=== PATIENT | female | born 1945 | race Hispanic/Latino ===

== ENCOUNTER 2017-07-04 09:33 | Observation (INO) | payer MEDICARE ==
[2017-07-04 09:34] VITALS: BMI 26.2
[2017-07-04] MEDS ORDERED: Sodium Chloride 0.9% 1,000 ML IV STA (10:31)
--- NOTE | 2017-07-04 10:32 | ED PDOC ---
HPI: General Adult Time Seen by Provider: 07/04/17 09:45 Chief Complaint (Nursing): Dizziness/Lightheaded Chief Complaint (Provider): Dizziness History Per: Patient History/Exam Limitations: no limitations Onset/Duration Of Symptoms: Days (3) Current Symptoms Are (Timing): Still Present Additional Complaint(s): Pt. with dizziness like room spinning. Went away initially and then came back. Nausea, vomit, nonbloody with it. No headaches, dyspnea, chest pain, numbness , tingles, neck pain. Had surgery to left hip in Nov. Not walking on it, but on lovenox Left leg baseline weak and does not move much movement to it. Past Medical History Reviewed: Nursing Documentation, Vital Signs Vital Signs: Last Vital Signs Temp 98.1 F 07/04/17 09:35 Pulse 67 07/04/17 09:35 Resp 18 07/04/17 09:35 BP 137/80 07/04/17 09:35 Pulse Ox 99 07/04/17 13:03 - Medical History PMH: Anxiety, Fractures, HTN, Hypercholesterolemia - Surgical History Other surgeries: Left hip surgery - Family History Family History: States: Unknown Family Hx - Social History Current smoker - smoking cessation education provided: No Alcohol: None Drugs: Denies - Immunization History Hx Tetanus Toxoid Vaccination: No Hx Influenza Vaccination: No Hx Pneumococcal Vaccination: No - Home Medications Home Medications: Ambulatory Orders Medication Instructions Recorded Naproxen [Naprosyn Tab] 375 mg PO Q12 PRN #20 tab 06/26/16 Tamsulosin [Flomax] 0.4 mg PO DAILY #10 cap 06/26/16 Losartan [Cozaar] 25 mg PO DAILY 04/29/17 Simvastatin [Zocor] 20 mg PO HS 04/29/17 Calcium/Vitamin D [Citracal+D 2 tab PO DAILY tab 05/01/17 315mg/250IU] Docusate [Colace] 100 mg PO BID cap 05/01/17 Famotidine [Pepcid] 20 mg PO BID tab 05/01/17 Alendronate [Fosamax] 70 mg PO QWK tab 05/15/17 Aspirin [Aspirin Chewable] 81 mg PO DAILY chew 05/15/17 Enoxaparin [Lovenox] 40 mg SC DAILY syr 05/15/17 Ferrous Sulfate [Feosol] 325 mg PO BID tab 05/15/17 Folic Acid 1 mg PO DAILY tab 05/15/17 Lactobacillus Acidophilus [Bacid 1 cap PO BID cap 05/15/17 Acidophilus] Meropenem IV 1 gm in NS [Merrem IV 1 gm IVPB Q12 10 Days #20 bag 05/15/17 1 gm Premix] oxyCODONE/Acetaminophen [Percocet 1 tab PO Q4 PRN #20 tab 05/15/17 5/325 mg Tab] - Allergies Allergies/Adverse Reactions: Allergies Allergy/AdvReac Type Severity Reaction Status Date / Time No Known Allergies Allergy Verified 06/26/16 16:57 Review of Systems ROS Statement: Except As Marked, All Systems Reviewed And Found Negative Gastrointestinal: Positive for: Nausea, Vomiting Neurological: Positive for: Dizziness Physical Exam - Reviewed Nursing Documentation Reviewed: Yes Vital Signs Reviewed: Yes - Physical Exam Appears: Positive for: Non-toxic, No Acute Distress Head Exam: Positive for: ATRAUMATIC, NORMAL INSPECTION, NORMOCEPHALIC Skin: Positive for: Normal Color, Warm, DRY Eye Exam: Positive for: EOMI, Normal appearance, PERRL ENT: Positive for: Normal ENT Inspection Neck: Positive for: Normal, Painless ROM, Supple Cardiovascular/Chest: Positive for: Regular Rate, Rhythm Respiratory: Positive for: CNT, Normal Breath Sounds Gastrointestinal/Abdominal: Positive for: Normal Exam, Bowel Sounds, Soft. Negative for: Tenderness Back: Positive for: Normal Inspection. Negative for: L CVA Tenderness, R CVA Tenderness Extremity: Positive for: Tenderness (mild left hip; limited ROM (baseline her pt.); healed surgical scar.) Neurologic/Psych: Positive for: Alert, security associate II-XII, Oriented. Negative for: Motor/Sensory Deficits, Aphasia, Facial Droop - Laboratory Results Result Diagrams: 07/04/17 10:50 07/04/17 10:50 Interpretation Of Abn Labs: no acute - ECG ECG: Positive for: Interpreted By Me, Viewed By Me ECG Rhythm: Positive for: Normal QRS, Sinus Rhythm, Nonspecific Changes O2 Sat by Pulse Oximetry: 99 Pulse Ox Interpretation: Normal - CT Scan/US head Other Rad Studies (CT/US): Read By Radiologist Other Rad Interpretation: no acute - Progress ED Course And Treament: 1308: Pt. still with dizziness. Will need admit for further eval and tx. Spoke with Dr. Mckeon who will admit. Will give valium. 1320: Spoke with ortho office for Dr. Mckeon. They will notify him about pt. being admitted to the hospital. Disposition - Clinical Impression Clinical Impression: Dizziness - Patient ED Disposition Is Patient to be Admitted: Yes Counseled Patient/Family Regarding: Studies Performed, Diagnosis - Disposition Disposition Time: 13:09 Condition: FAIR - Pt Status Changed To: Hospital Disposition Of: Observation - POA Present On Arrival: None
--- NOTE | 2017-07-04 10:36 | CARD ---
APPROVED REPORT EKG Measurement Heart [id number] <Conclusion> Normal sinus rhythm T wave abnormality, consider anterior ischemia Abnormal ECG
[2017-07-04 11:02] LABS: BASO % 0.3 % (0.0-2.0); EOS # 0.1 K/uL (0.0-0.7); EOS % 0.6 % (0.0-4.0); HEMOGLOBIN 12.8 g/dL (12.0-16.0); LYMPH # 0.9 K/uL (1.0-4.3); MEAN CELL VOLUME 87.6 fl (81.0-99.0); MEAN CORPUSCULAR HEMOGLOBIN 28.8 pg (27.0-31.0); MEAN CORPUSCULAR HGB CONC 32.9 g/dL (33.0-37.0); MEAN PLATELET VOLUME 7.7 fl (7.2-11.7); MONO # 0.5 K/uL (0.0-0.8); MONO % 4.1 % (0.0-10.0); NEUT # 9.8 K/uL (1.8-7.0); PLATELET COUNT 288 K/uL (130-400); RBC 4.46 Mil/uL (3.80-5.20); RED CELL DISTRIBUTION WIDTH 15.3 % (11.5-14.5); WHITE BLOOD COUNT 11.2 K/uL (4.8-10.8)
[2017-07-04 11:13] LABS: ALB/GLOB RATIO 0.9 (1.0-2.1); ALBUMIN 3.8 g/dL (3.5-5.0); ALT/SGPT 30 U/L (9-52); AST/SGOT 23 U/L (14-36); BLOOD UREA NITROGEN 20 mg/dl (7-17); CALCIUM 9.6 mg/dL (8.4-10.2); GFR AFRICAN-AMERICAN > 60; GFR NON-AFRICAN AMERICAN > 60
[2017-07-04 11:18] LABS: INR 1.1 (0.9-1.2); PARTIAL THROMBOPLASTIN TIME 24.9 Seconds (25.6-37.1)
--- NOTE | 2017-07-04 12:14 | CT ---
PROCEDURE: CT HEAD WITHOUT CONTRAST. HISTORY: headache COMPARISON: None available. TECHNIQUE: Axial computed tomography images were obtained through the head/brain without intravenous contrast. Radiation dose: Total exam DLP = 946 mGy-cm. This CT exam was performed using one or more of the following dose reduction techniques: Automated exposure control, adjustment of the mA and/or kV according to patient size, and/or use of iterative reconstruction technique. FINDINGS: HEMORRHAGE: No intracranial hemorrhage. BRAIN: No mass effect or edema. No atrophy or chronic microvascular ischemic changes. VENTRICLES: Unremarkable. No hydrocephalus. CALVARIUM: Unremarkable. PARANASAL SINUSES: Unremarkable as visualized. No significant inflammatory changes. MASTOID AIR CELLS: Unremarkable as visualized. No inflammatory changes. OTHER FINDINGS: None. IMPRESSION: Normal CT of the Head.
[2017-07-04 12:48] LABS: ANISOCYTOSIS SLIGHT; EOSINOPHIL 1 % (0-7); LYMPHOCYTE 12 % (20-50); MONOCYTE 3 % (0-10); NEUTROPHIL 84 % (42-75); PLATELET ESTIMATE NORMAL (NORMAL); TOTAL CELLS COUNTED 100
--- NOTE | 2017-07-04 15:56 | US ---
Bilateral lower extremity ultrasound Indication: Rule out DVT Technique: Duplex ultrasound evaluation of the bilateral lower extremities Comparison: None available Findings: Limited study. There is normal flow, compressibility, and augmentation of the bilateral common femoral, femoral, and popliteal veins. The right PTV is not visualized. The left PTV appears patent. Sub cm left inguinal lymph node, nonspecific. Impression: No evidence of deep venous thrombosis involving bilateral lower extremities. The right PTV is not visualized.
[2017-07-05] MEDS ORDERED: ALENDRONATE 70 MG TAB PO SCH (07:15)
[2017-07-05] MEDS ORDERED: Enoxaparin 40 mg Syringe SC SCH (09:00)
[2017-07-05 09:26] LABS: HDL CHOLESTEROL 40 MG/DL (30-70)
[2017-07-05 09:36] LABS: LDL CHOLESTEROL 113 mg/dL (0-129)
[2017-07-05] MEDS: Enoxaparin 40 mg Syringe SC SCH (09:36)
[2017-07-05] MEDS: Lactobacillus Acidophilus 500 MU Cap PO SCH ×2 (09:41→17:12)
--- NOTE | 2017-07-05 10:41 | CARD ---
APPROVED REPORT EXAM: Two-dimensional and M-mode echocardiogram with Doppler and color Doppler. Other Information Quality : AverageRhythm : NSR INDICATION Dizziness and Vertigo 2D DIMENSIONS IVSd0.95 (0.7-1.1cm)LVDd3.67 (3.9-5.9cm) LVOT Diameter2.22 (1.8-2.4cm)PWd0.86 (0.7-1.1cm) IVSs1.18 (0.8-1.2cm)LVDs2.77 (2.5-4.0cm) FS (%) 24.4 %PWs1.33 (0.8-1.2cm) M-Mode DIMENSIONS Left Atrium (MM)4.29 (2.5-4.0cm)IVSd0.74 (0.7-1.1cm) Aortic Root2.91 (2.2-3.7cm)LVDd5.41 (4.0-5.6cm) Aortic Cusp Exc.1.85 (1.5-2.0cm)PWd0.97 (0.7-1.1cm) IVSs1.53 cmFS (%) 50 % LVDs2.71 (2.0-3.8cm)PWs1.18 cm Mitral Valve MV E Hsgsgbls71.7cm/sMV DECEL [id number] A Waqpynwp79.6cm/s MV LMZ09seN/A ratio1.1MVA (PHT)3.81cm2 TDI Lateral E' Peak V9.04cm/sMedial E' Peak V7.82cm/sE/Lateral E'6.2 E/Medial E'7.1 Tricuspid Valve TR Peak Ywketybl711rz/sRAP [id number] Peak Gr.7mmHg [id number] LEFT VENTRICLE The left ventricle is normal size. There is normal left ventricular wall thickness. Left ventricle systolic function is normal. The Ejection Fraction is 65-70%. There is normal LV segmental wall motion. Transmitral Doppler flow pattern is Grade I-abnormal relaxation pattern. RIGHT VENTRICLE The right ventricle is normal size. There is normal right ventricular wall thickness. The right ventricular systolic function is normal. ATRIA The left atrium size is normal. The right atrium size is normal. AORTIC VALVE The aortic valve is normal in structure. No aortic regurgitation is present. There is no aortic valvular stenosis. MITRAL VALVE The mitral valve is normal in structure. There is no evidence of mitral valve prolapse. There is no mitral valve stenosis. There is no mitral valve regurgitation noted. TRICUSPID VALVE The tricuspid valve is normal in structure. There is no tricuspid valve regurgitation noted. PULMONIC VALVE The pulmonary valve is normal in structure. There is no pulmonic valvular regurgitation. GREAT VESSELS The aortic root is normal in size. The IVC is normal in size and collapses >50% with inspiration. PERICARDIAL EFFUSION The pericardium appears normal. <Conclusion> The left ventricle is normal size. There is normal left ventricular wall thickness. There is normal LV segmental wall motion. Left ventricle systolic function is normal. The Ejection Fraction is 65-70%. Transmitral Doppler flow pattern is Grade I-abnormal relaxation pattern.
[2017-07-05] MEDS: metroNIDAZOLE 500mg/100ml NS 50 ML IVPB SCH ×2 (11:07→17:09)
[2017-07-05] MEDS: Citracal+D 315mg/250IU PO SCH (11:08)
--- NOTE | 2017-07-05 13:10 | US ---
PROCEDURE: Duplex ultrasound of the carotid and vertebral arteries. HISTORY: vertigo COMPARISON: None available. TECHNIQUE: Grayscale and duplex Doppler evaluation of the cervical carotid and vertebral arteries were performed. The common carotid, carotid bifurcations and cervical ICA and proximal ECA were evaluated. The vertebral arteries were evaluated for gross patency and direction. FINDINGS: RIGHT CAROTID ARTERIES: Common Carotid Artery: Normal. Maximal flow velocity of 86.2 cm/s. Carotid Bifurcation: Normal. Internal Carotid Artery:Heterogeneous plaque formation. Maximal flow velocity of 101.8 cm/s. External Carotid Artery (proximal branches): Normal. Maximal flow velocity of 76.5 cm/s. ICA/CCA Ratio: 1.9 LEFT CAROTID ARTERIES: Common Carotid Artery: Intimal thickening is present Maximal flow velocity of 94.1 cm/s. Carotid Bifurcation: Normal. Internal Carotid Artery:Heterogeneous plaque formation. Maximal flow velocity of 83.6 cm/s. External Carotid Artery (proximal branches): Normal. Maximal flow velocity of 95.7 cm/s. ICA/CCA Ratio: 1.1 VERTEBRAL ARTERIES: Right Vertebral Artery: Patent. Antegrade flow. Left Vertebral Artery: Patent. Antegrade flow. OTHER FINDINGS: None. IMPRESSION: Right ICA degree of stenosis: Less than 50% Left ICA degree of stenosis: Less than 50% Reference Internal Carotid Artery (ICA) Peak Systolic Velocity (PSV) for above: 1. Less than 50% stenosis less than 125 cm/s peak systolic velocity 2. 50-69% stenosis 125-230cm/s peak systolic velocity 3. Greater than 70% but less than near occlusion greater than 230 cm/s peak systolic velocity
--- NOTE | 2017-07-05 13:22 | CP.PCM.CON ---
History of Present Illness - History of Present Illness History of Present Illness: Mrs. Aguilar is a 71-year-old woman with a past medical history of HTN, HLD, CAD, who presented with complaints of feeling that the room is spinning. It was associated with nausea, vomiting and was made worse when she turned her head to either side. But, she said that it does feel slightly worse when she turns to the left as opposed to the right side. She is feeling better now, but still has the spinning sensation, even when she closes her eyes. Review of Systems - Review of Systems All systems: reviewed and no additional remarkable complaints except Past Patient History - Infectious Disease Hx of Infectious Diseases: None - Past Medical History & Family History Past Medical History?: Yes - Past Social History Smoking Status: Never Smoked - CARDIAC Hx Cardiac Disorders: Yes Hx Hypertension: Yes - PULMONARY Hx Respiratory Disorders: No - NEUROLOGICAL Hx Vertigo: Yes - HEENT Hx HEENT Problems: No - RENAL Hx Chronic Kidney Disease: No - ENDOCRINE/METABOLIC Hx Endocrine Disorders: No - HEMATOLOGICAL/ONCOLOGICAL Hx Blood Disorders: No - INTEGUMENTARY Hx Dermatological Problems: No - MUSCULOSKELETAL/RHEUMATOLOGICAL Hx Musculoskeletal Disorders: Yes Hx Falls: Yes - GASTROINTESTINAL Hx Gastrointestinal Disorders: No - GENITOURINARY/GYNECOLOGICAL Hx Genitourinary Disorders: No - PSYCHIATRIC Hx Psychophysiologic Disorder: Yes Hx Anxiety: Yes Hx Substance Use: No - SURGICAL HISTORY Hx Surgeries: Yes Hx Orthopedic Surgery: Yes (left anterior THR) - ANESTHESIA Hx Anesthesia: Yes Hx Anesthesia Reactions: No Meds Allergies/Adverse Reactions: Allergies Allergy/AdvReac Type Severity Reaction Status Date / Time No Known Allergies Allergy Verified 06/26/16 16:57 - Medications Medications: Current Medications Alendronate Sodium (Fosamax) 70 mg PO QWK [facility] Aspirin (Aspirin Chewable) 81 mg PO DAILY [facility] Last Admin: 07/05/17 09:41 Dose: 81 mg Atorvastatin Calcium (Lipitor) 10 mg PO DAILY [facility] Last Admin: 07/05/17 11:06 Dose: 10 mg Calcium/Vitamin D (Citracal+D 315mg/250iu) 2 tab PO DAILY [facility] Last Admin: 07/05/17 11:08 Dose: 2 tab Diazepam (Valium) 2 mg PO Q12 PRN PRN Reason: Dizziness Docusate Sodium (Colace) 100 mg PO BID [facility] Last Admin: 07/05/17 09:43 Dose: 100 mg Enoxaparin Sodium (Lovenox) 40 mg SC DAILY [facility] PRN Reason: Protocol Last Admin: 07/05/17 09:36 Dose: 40 mg Famotidine (Pepcid) 20 mg PO BID [facility] Last Admin: 07/05/17 09:42 Dose: 20 mg Ferrous Sulfate (Feosol) 325 mg PO BID [facility] Last Admin: 07/05/17 09:41 Dose: 325 mg Folic Acid (Folic Acid) 1 mg PO DAILY [facility] Last Admin: 07/05/17 11:08 Dose: 1 mg Metronidazole (Flagyl 500mg/100ml Ns) 50 mls @ 50 mls/hr IVPB Q8 [facility] PRN Reason: Protocol Last Admin: 07/05/17 11:07 Dose: 50 mls/hr Lactobacillus Acidophilus (Bacid Acidophilus) 1 cap PO BID [facility] Last Admin: 07/05/17 09:41 Dose: 1 cap Losartan Potassium (Cozaar) 25 mg PO DAILY [facility] Last Admin: 07/05/17 11:08 Dose: 25 mg Meclizine HCl (Antivert) 25 mg PO BID [facility] Last Admin: 07/05/17 11:07 Dose: 25 mg Physical Exam - Constitutional Appears: Well - Head Exam Head Exam: ATRAUMATIC - Eye Exam Eye Exam: EOMI, Normal appearance, PERRL - ENT Exam ENT Exam: Mucous Membranes Moist, Normal Exam - Neck Exam Neck exam: Positive for: Normal Inspection - Respiratory Exam Respiratory Exam: Clear to Auscultation Bilateral, NORMAL BREATHING PATTERN - Cardiovascular Exam Cardiovascular Exam: REGULAR RHYTHM, +S1, +S2 - GI/Abdominal Exam GI & Abdominal Exam: Normal Bowel Sounds, Soft. absent: Tenderness - Rectal Exam Rectal Exam: Deferred - Extremities Exam Extremities exam: Positive for: normal inspection - Back Exam Back exam: NORMAL INSPECTION - Neurological Exam Neurological exam: Abnormal Gait, Alert, CN II-XII Intact, Oriented x3, Reflexes Normal Additional comments: Left beating nystagmus. Strength and sensation are normal and symmetrical. Coordination is intact. Romberg is normal. HTS/FTN is normal. Reflexes were normal. Plantar responses are downgoing. Results - Vital Signs Recent Vital Signs: Last Vital Signs Temp 98.4 F 07/05/17 12:23 Pulse 82 07/05/17 12:23 Resp 20 07/05/17 12:23 BP 116/71 07/05/17 12:23 Pulse Ox 95 07/05/17 12:23 - Labs Result Diagrams: 07/04/17 10:50 07/04/17 10:50 Labs: Laboratory Results - last 24 hr 07/04/17 07/05/17 07/05/17 09:28 07:45 08:51 Hemoglobin A1c Triglycerides 132 Cholesterol 198 LDL Cholesterol Direct 113 HDL Cholesterol 40 Vitamin B12 400 TSH 3rd Generation 3.85 07/05/17 08:51 Hemoglobin A1c 5.3 Triglycerides Cholesterol LDL Cholesterol Direct HDL Cholesterol Vitamin B12 TSH 3rd Generation Assessment & Plan (1) Vertigo Assessment and Plan: Is most likely due to benign positional vertigo; however, due to her risk factors, I recommend obtaining further imaging for work-up. I recommend: 1. Telemetry 2. If possible, MRI/MRA of the brain; if not, CTA of the head/neck. 3. Echocardiogram. 4. Continue aspirin and statin 5. Valium 2 mg Q12 for vertigo 6. Vestibular rehab 7. PT/OT eval Thank you. Status: Acute Priority: High
[2017-07-05] MEDS ORDERED: Sodium Chloride 0.9% 50 ML IV ONE (17:29)
[2017-07-05] MEDS ORDERED: Iodixanol 320 MG/ML 100 ML BOTTLE IV ONE (17:29)
[2017-07-05 17:58] LABS: FOLATE > 20.0 ng/mL
--- NOTE | 2017-07-05 18:05 | CP.PCM.HP ---
History of Present Illness - History of Present Illness History of Present Illness: Pt. presented in ER with persisted dizziness like room spinning for several days with no improvement. No Nausea, vomit No headaches, dyspnea, chest pain, numbness, tingles, neck pain. Had surgery to left hip in Nov. Present on Admission - Present on Admission Any Indicators Present on Admission: No Review of Systems - Constitutional Constitutional: Malaise - EENT Eyes: As Per HPI - Cardiovascular Cardiovascular: As Per HPI - Respiratory Respiratory: As Per HPI - Gastrointestinal Gastrointestinal: As Per HPI - Musculoskeletal Musculoskeletal: As Per HPI - Neurological Neurological: Abnormal Gait, Vertigo - Psychiatric Psychiatric: As Per HPI Past Patient History - Infectious Disease Hx of Infectious Diseases: None - Past Medical History & Family History Past Medical History?: Yes - Past Social History Smoking Status: Never Smoked - CARDIAC Hx Cardiac Disorders: Yes Hx Hypertension: Yes - PULMONARY Hx Respiratory Disorders: No - NEUROLOGICAL Hx Vertigo: Yes - HEENT Hx HEENT Problems: No - RENAL Hx Chronic Kidney Disease: No - ENDOCRINE/METABOLIC Hx Endocrine Disorders: No - HEMATOLOGICAL/ONCOLOGICAL Hx Blood Disorders: No - INTEGUMENTARY Hx Dermatological Problems: No - MUSCULOSKELETAL/RHEUMATOLOGICAL Hx Musculoskeletal Disorders: Yes Hx Falls: Yes - GASTROINTESTINAL Hx Gastrointestinal Disorders: No - GENITOURINARY/GYNECOLOGICAL Hx Genitourinary Disorders: No - PSYCHIATRIC Hx Psychophysiologic Disorder: Yes Hx Anxiety: Yes Hx Substance Use: No - SURGICAL HISTORY Hx Surgeries: Yes Hx Orthopedic Surgery: Yes (left anterior THR) - ANESTHESIA Hx Anesthesia: Yes Hx Anesthesia Reactions: No Meds Allergies/Adverse Reactions: Allergies Allergy/AdvReac Type Severity Reaction Status Date / Time No Known Allergies Allergy Verified 06/26/16 16:57 Physical Exam - Constitutional Appears: Non-toxic - Head Exam Head Exam: ATRAUMATIC - Eye Exam Eye Exam: Normal appearance - ENT Exam ENT Exam: Mucous Membranes Moist - Neck Exam Neck exam: Positive for: Full Rom - Respiratory Exam Respiratory Exam: Clear to Auscultation Bilateral - Cardiovascular Exam Cardiovascular Exam: REGULAR RHYTHM, +S1, +S2 - GI/Abdominal Exam GI & Abdominal Exam: Normal Bowel Sounds - Extremities Exam Extremities exam: Positive for: normal inspection - Neurological Exam Neurological exam: Alert, CN II-XII Intact, Oriented x3 - Psychiatric Exam Psychiatric exam: Normal Affect - Skin Skin Exam: Normal Color Results - Vital Signs Recent Vital Signs: Last Vital Signs Temp 98.4 F 07/05/17 12:23 Pulse 82 07/05/17 12:23 Resp 20 07/05/17 12:23 BP 116/71 07/05/17 12:23 Pulse Ox 95 07/05/17 12:23 - Labs Result Diagrams: 07/04/17 10:50 07/04/17 10:50 Labs: Laboratory Results - last 24 hr 07/04/17 07/05/17 07/05/17 09:28 07:45 08:51 Hemoglobin A1c Triglycerides 132 Cholesterol 198 LDL Cholesterol Direct 113 HDL Cholesterol 40 Vitamin B12 400 Folate > 20.0 TSH 3rd Generation 3.85 07/05/17 08:51 Hemoglobin A1c 5.3 Triglycerides Cholesterol LDL Cholesterol Direct HDL Cholesterol Vitamin B12 Folate TSH 3rd Generation Assessment & Plan (1) Labyrinthine dysfunction Status: Acute (2) Dizziness Status: Acute (3) Vertigo Status: Acute Priority: High (4) Polio Status: Chronic (5) Neuroma Status: Suspected - Assessment and Plan (Free Text) Plan: As per orders.
[2017-07-06] MEDS: metroNIDAZOLE 500mg/100ml NS 50 ML IVPB SCH ×2 (00:30→10:04)
[2017-07-06 08:33] VITALS: O2SAT 97
[2017-07-06] MEDS: Citracal+D 315mg/250IU PO SCH (10:05)
[2017-07-06] MEDS: Enoxaparin 40 mg Syringe SC SCH (10:06)
[2017-07-06] MEDS: Lactobacillus Acidophilus 500 MU Cap PO SCH ×2 (10:09→17:35)
--- NOTE | 2017-07-06 10:58 | CT ---
PROCEDURE: CT Angiography of the neck and brain dated 07/05/2017 HISTORY: Dizziness. COMPARISON: Correlation made with prior CT scan brain dated 07/04/2017. TECHNIQUE: Contiguous axial images of the neck and brain were obtained from the level of the skull-base to the superior mediastinum in the arteriographic phase of enhancement. Coronal and sagittal reformats or also generated. IV contrast dose: 20 cc Visipaque 320 Radiation Dose - DLP: 2144.7 mGy-cm This CT exam was performed using one or more of the following dose reduction techniques: Automated exposure control, adjustment of the mA and/or kV according to patient size, and/or use of iterative reconstruction technique. . FINDINGS: Minor partially calcified atherosclerotic plaque seen along the left inferolateral margin of the transverse portion of the aortic arch. Origins of the great vessels widely patent without occlusion or significant stenosis. The ascending thoracic aorta measures approximately 3.6 cm and descending thoracic aorta measures approximately 2.3 cm The common carotid arteries are widely patent. Some very minimal atherosclerotic plaque seen along distal right common carotid artery extending into the bifurcation however no evidence of occlusion or significant stenosis. Distal internal carotid arteries including the petrous, cavernous and carotid segments also widely patent. Some very minimal partially calcified plaque seen along the right cavernous carotid segment. The vertebral arteries are patent throughout as is the basilar artery. The visualized intracranial circulation unremarkable. No evidence of large aneurysm nor vascular malformation. Multiple tiny calcifications seen throughout the palatine tonsils consistent with tonsilliths. There is asymmetry of the vallecular left-side of which is smaller than the right containing soft tissue. While this could be secondary to residual/retained secretion, the possibility of a mucosal lesion not excluded. Direct visualization recommended. ENT consultation also suggested. Free margin of the epiglottis is unremarkable. True vocal cords are symmetric. Pyriform sinuses are diminutive but also symmetric. There is a heterogeneous appearance of the thyroid gland likely in part due to crossing streak and beam hardening artifact arising from dense clavicles and shoulder girdles. There appears to be a very tiny low-attenuation focus within the right lobe thyroid gland. Consider followup thyroid ultrasound. Note is made of a rounded approximately 9.75 mm calcification within the right submandibular region possibly representing a calculus within the right submandibular duct. Atelectatic changes seen within the upper lung luciano. No focal consolidation. IMPRESSION: No evidence of occlusion or significant stenosis. There is no evidence of large aneurysm nor vascular malformation. Heterogeneous thyroid gland with questionable small low-attenuation focus right lobe thyroid gland. Recommend followup thyroid ultrasound. In addition, there is a large calcification in the right submandibular region possibly representing a calculus within the right submandibular duct There is asymmetry of the vallecular left-side of which is smaller than the right containing soft tissue. While this could be secondary to residual/retained secretion, the possibility of a mucosal lesion not excluded. Direct visualization recommended. ENT consultation also suggested. Multiple small bilateral palatine tonsilliths.
--- NOTE | 2017-07-06 11:36 | CP.PCM.PN ---
Subjective - Date & Time of Evaluation Date of Evaluation: 07/06/17 Time of Evaluation: 11:33 - Subjective Subjective: Ms. Aguilar was seen and examined at the bedside. She is alert, oriented in all spheres. She claims of dizziness improved in comparison from yesterday. She denies any headache, blurred vision, nausea, or vomiting. She is able to follow simple commands. Echocardiogram showed normal EF, CTA of the head and neck showed no evidence of occlusion or significant stenosis. There is no evidence of aneuryms or vascular malformation.There was no untoward events overnight. Objective - Vital Signs/Intake and Output Vital Signs (last 24 hours): Temp Pulse Resp BP Pulse Ox 98.5 F 67 20 134/83 97 07/06/17 08:00 07/06/17 10:05 07/06/17 08:00 07/06/17 10:05 07/06/17 08:00 - Medications Medications: Current Medications Acetaminophen (Tylenol 325mg Tab) 650 mg PO Q6 PRN PRN Reason: Pain, Mild (1-3) Last Admin: 07/06/17 05:24 Dose: 650 mg Alendronate Sodium (Fosamax) 70 mg PO QWK [facility] Aspirin (Aspirin Chewable) 81 mg PO DAILY [facility] Last Admin: 07/06/17 10:05 Dose: 81 mg Atorvastatin Calcium (Lipitor) 10 mg PO DAILY [facility] Last Admin: 07/06/17 10:06 Dose: 10 mg Calcium/Vitamin D (Citracal+D 315mg/250iu) 2 tab PO DAILY [facility] Last Admin: 07/06/17 10:05 Dose: 2 tab Diazepam (Valium) 2 mg PO Q12 PRN PRN Reason: Dizziness Docusate Sodium (Colace) 100 mg PO BID [facility] Last Admin: 07/06/17 10:09 Dose: 100 mg Enoxaparin Sodium (Lovenox) 40 mg SC DAILY [facility] PRN Reason: Protocol Last Admin: 07/06/17 10:06 Dose: 40 mg Famotidine (Pepcid) 20 mg PO BID [facility] Last Admin: 07/06/17 10:06 Dose: 20 mg Ferrous Sulfate (Feosol) 325 mg PO BID [facility] Last Admin: 07/06/17 10:04 Dose: 325 mg Folic Acid (Folic Acid) 1 mg PO DAILY [facility] Last Admin: 07/06/17 10:06 Dose: 1 mg Metronidazole (Flagyl 500mg/100ml Ns) 50 mls @ 50 mls/hr IVPB Q8 [facility] PRN Reason: Protocol Last Admin: 07/06/17 10:04 Dose: 50 mls/hr Lactobacillus Acidophilus (Bacid Acidophilus) 1 cap PO BID [facility] Last Admin: 07/06/17 10:09 Dose: 1 cap Losartan Potassium (Cozaar) 25 mg PO DAILY [facility] Last Admin: 07/06/17 10:05 Dose: 25 mg - Labs Labs: 07/04/17 10:50 07/04/17 10:50 PT 12.0 Seconds (9.8-13.1) 07/04/17 11:04 INR 1.1 (0.9-1.2) 07/04/17 11:04 APTT 24.9 Seconds (25.6-37.1) L 07/04/17 11:04 - Constitutional Appears: No Acute Distress - Head Exam Head Exam: NORMAL INSPECTION - Neurological Exam Neurological Exam: Alert, Awake Neuro motor strength exam: Left Upper Extremity: 5, Right Upper Extremity: 5, Left Lower Extremity: 5, Right Lower Extremity: 5 Additional comments: She is able to answer questions and follow simple commands. Dizziness is improved since admission. Assessment and Plan (1) Vertigo Assessment & Plan: Case discussed with Dr. Barrett, continue all current medical, physical therapies. There is no new recommendation from neurology. Status: Acute
--- NOTE | 2017-07-06 13:10 | RAD ---
PROCEDURE: Left Hip X-ray radiographs dated 07/06/2017. HISTORY: Status post hip replacement. COMPARISON: Comparison made [facility] radiographs dated 01/24/17 FINDINGS: BONES: There has been interval left total hip replacement. The acetabular component projects medially ; rule out protrusio of the acetabular total hip replacement component. Hardware intact. No definitive fracture. SOFT TISSUES: Normal. OTHER FINDINGS: None. IMPRESSION: There has been interval left total hip replacement. The acetabular component projects medially ; rule out protrusio of the acetabular total hip replacement component. Hardware intact. No definitive fracture.
--- NOTE | 2017-07-06 14:13 | US ---
HISTORY: nodule TECHNIQUE: Sonographic evaluation of the thyroid gland. COMPARISON: 2017. CT neck documenting heterogeneous appearance of the thyroid. FINDINGS: RIGHT LOBE: Measures 1.6 x 1.5 x 4.7 cm. Heterogenous echotexture, normal vascularity Nodules: None LEFT LOBE: Measures 1.3 x 1.3 x 4.7 cm. Heterogenous echotexture, normal vascularity Nodules: None ISTHMUS: Measures 0.36 cm. Normal echotexture and flow. Nodules: None OTHER FINDINGS: None . IMPRESSION: No significant findings. Normal size gland, unremarkable vascularity, heterogeneous echo characteristics.
--- NOTE | 2017-07-06 15:11 | CT ---
PROCEDURE: Left hip dated 07/06/2017. HISTORY: Questionable fracture COMPARISON: Comparison made with plain film radiographs obtained earlier same day TECHNIQUE: Contiguous helical/transaxial images of the left hip were obtained. Coronal and sagittal reformats were generated. This CT exam was performed using one or more of the following dose reduction techniques: Automated exposure control, adjustment of the mA and/or kV according to patient size, and/or use of iterative reconstruction technique. Radiation dose: Total PNE=429.80 FINDINGS: BONES: Left total hip replacement. Hardware intact and appropriately located. . There is slight protrusio of the acetabular component which is felt to be within range of normal. There is no evidence of complete extension of the metallic acetabular component through acetabular roof LEFT HIP JOINT: . Unremarkable. No dislocation. No degenerative changes. SOFT TISSUES: Unremarkable. IMPRESSION: No evidence of acute displaced fracture nor dislocation. . Hardware is intact without an appropriate located without evidence of. Minimal protrusion of the acetabular component which is felt to be within range of normal.
--- NOTE | 2017-07-06 15:14 | CP.PCM.PN ---
Subjective - Date & Time of Evaluation Date of Evaluation: 07/06/17 Time of Evaluation: 15:13 - Subjective Subjective: Patient stable no new c/o. Will dc home. Objective - Vital Signs/Intake and Output Vital Signs (last 24 hours): Temp Pulse Resp BP Pulse Ox 98.2 F 63 18 130/79 97 07/06/17 12:57 07/06/17 12:57 07/06/17 12:57 07/06/17 12:57 07/06/17 12:57 - Medications Medications: Current Medications Acetaminophen (Tylenol 325mg Tab) 650 mg PO Q6 PRN PRN Reason: Pain, Mild (1-3) Last Admin: 07/06/17 05:24 Dose: 650 mg Alendronate Sodium (Fosamax) 70 mg PO QWK [facility] Aspirin (Aspirin Chewable) 81 mg PO DAILY [facility] Last Admin: 07/06/17 10:05 Dose: 81 mg Atorvastatin Calcium (Lipitor) 10 mg PO DAILY [facility] Last Admin: 07/06/17 10:06 Dose: 10 mg Calcium/Vitamin D (Citracal+D 315mg/250iu) 2 tab PO DAILY [facility] Last Admin: 07/06/17 10:05 Dose: 2 tab Diazepam (Valium) 2 mg PO Q12 PRN PRN Reason: Dizziness Docusate Sodium (Colace) 100 mg PO BID [facility] Last Admin: 07/06/17 10:09 Dose: 100 mg Enoxaparin Sodium (Lovenox) 40 mg SC DAILY [facility] PRN Reason: Protocol Last Admin: 07/06/17 10:06 Dose: 40 mg Famotidine (Pepcid) 20 mg PO BID [facility] Last Admin: 07/06/17 10:06 Dose: 20 mg Ferrous Sulfate (Feosol) 325 mg PO BID [facility] Last Admin: 07/06/17 10:04 Dose: 325 mg Folic Acid (Folic Acid) 1 mg PO DAILY [facility] Last Admin: 07/06/17 10:06 Dose: 1 mg Metronidazole (Flagyl 500mg/100ml Ns) 50 mls @ 50 mls/hr IVPB Q8 [facility] PRN Reason: Protocol Lactobacillus Acidophilus (Bacid Acidophilus) 1 cap PO BID [facility] Last Admin: 07/06/17 10:09 Dose: 1 cap Losartan Potassium (Cozaar) 25 mg PO DAILY [facility] Last Admin: 07/06/17 10:05 Dose: 25 mg - Labs Labs: 07/04/17 10:50 07/04/17 10:50 PT 12.0 Seconds (9.8-13.1) 07/04/17 11:04 INR 1.1 (0.9-1.2) 07/04/17 11:04 APTT 24.9 Seconds (25.6-37.1) L 07/04/17 11:04 - Constitutional Appears: Non-toxic - Head Exam Head Exam: ATRAUMATIC, NORMAL INSPECTION, NORMOCEPHALIC - Eye Exam Eye Exam: Normal appearance - ENT Exam ENT Exam: Mucous Membranes Moist - Neck Exam Neck Exam: Full ROM - Respiratory Exam Respiratory Exam: Clear to Ausculation Bilateral - Cardiovascular Exam Cardiovascular Exam: REGULAR RHYTHM, +S1, +S2 - GI/Abdominal Exam GI & Abdominal Exam: Soft, Normal Bowel Sounds - Extremities Exam Extremities Exam: Normal Inspection - Neurological Exam Neurological Exam: Alert, Awake, CN II-XII Intact - Psychiatric Exam Psychiatric exam: Normal Affect - Skin Skin Exam: Normal Color Assessment and Plan (1) Labyrinthine dysfunction Status: Chronic (2) Dizziness Status: Resolved (3) Vertigo Status: Resolved (4) Polio Status: Ruled-out (5) Neuroma Status: Suspected - Assessment and Plan (Free Text) Plan: DC home
[2017-07-06 15:54] VITALS: BP 136/83; PULSE 88; RESP 20; TEMP 98
[2017-07-06] MEDS ORDERED: metroNIDAZOLE 500mg/100ml NS 50 ML IVPB SCH (17:00)
== END 2017-07-06 23:14 | disposition home or self-care (01) ==
LOC: H.ER 09:33 → H.ERHOLD 13:14 → H.TEL 21:38
PROVIDERS: ADMIT Internal Medicine; ATTEND Internal Medicine
DX: H81.10 Benign paroxysmal vertigo, unspecified ear (principal); I10 Essential (primary) hypertension; E78.5 Hyperlipidemia, unspecified; I25.10 Atherosclerotic heart disease of native coronary artery without angina pectoris
CPT/HCPCS: 36415; 70450; 70496; 70498; 73502; 73700; 76536; 80053; 80061; 82607; 82746; 83036; 84443; 84484; 85025; 85610; 85730; 93005; 93306; 93880; 93970; 97162; 99285; G0378; G8981; G8982; J1650; J2405; J7040; Q9967

== ENCOUNTER 2018-07-09 09:25 | Day surgery (SDC) | payer MEDICARE ==
[2018-07-09] MEDS ORDERED: Phenylephrine 2.5% Opht Soln OS ONE (10:15)
[2018-07-09] MEDS ORDERED: Flurbiprofen 0.03% Opht SOLN OS ONE ×2 (10:15→10:34)
[2018-07-09] MEDS ORDERED: Tropicamide 1% Opht 150 DROP/15 ML OS ONE ×2 (10:15→10:34)
[2018-07-09] MEDS ORDERED: Lactated Ringer's 1,000 ML IV ONE (10:30)
[2018-07-09] MEDS: Phenylephrine 2.5% Opht Soln OS ONE ×2 (10:34→11:41)
[2018-07-09] MEDS ORDERED: EPINEPHrine 1 mg/ml (1:1000) Inj ONE (10:46)
[2018-07-09] MEDS ORDERED: Tetracaine 0.5% Ophth 2 ML BOTTLE ONE (10:46)
[2018-07-09] MEDS ORDERED: Maxitrol Opht Susp ONE (10:46)
[2018-07-09] MEDS ORDERED: Lidocaine 1% 20 MG/2 ML PF AMP ONE (10:46)
[2018-07-09] MEDS ORDERED: CA CL/K CL/NA CL 500 ML IR ONE (10:47)
[2018-07-09] MEDS ORDERED: Pilocarpine 1% Opht Soln ONE (10:47)
[2018-07-09] MEDS ORDERED: Chondroitin/Hyaluronate Opth Syringe KIT (0.55 ml-0.5 ml) IO ONE (10:47)
[2018-07-09] MEDS ORDERED: STERILE IRRIGATING SOLUTION 45 ML IR ONE (10:47)
[2018-07-09] MEDS ORDERED: Povidone Iodine 5% Opht SOLUTION ONE (10:48)
[2018-07-09] MEDS ORDERED: Carbachol 0.01% IO ONE (10:48)
[2018-07-09] MEDS ORDERED: Midazolam 2 MG/2 ML VIAL ONE (11:13)
[2018-07-09] MEDS ORDERED: Povidone Iodine 5% Opht SOLUTION OS ONE (11:28)
[2018-07-09 14:19] VITALS: BP 18/78; PULSE 71; RESP 15; TEMP 97.8; O2SAT 98
--- NOTE | 2018-07-10 07:45 | OP ---
PROCEDURE DATE: 07/09/2018 SURGEON: ALEXANDREA COTA MD ANESTHESIOLOGIST: SHAVONNE COULTER MD ANESTHESIA: LOCAL / IV SEDATION PREOPERATIVE DIAGNOSIS: CATARACT LEFT EYE. POSTOPERATIVE DIAGNOSIS: CATARACT LEFT EYE. OPERATION: CLEAR CORNEAL PHACOEMULSIFICATION WITH LENS IMPLANT LEFT EYE. PREPARATION AND PROCEDURE: After the patient was prepped and draped in the usual manner for sterile ophthalmic surgery, local IV sedation was administered; eye seals were applied to the upper and lower lid margins and an adult wire lid speculum was placed within the lids. Under microsurgical control, a two-step clear corneal incision was made into the anterior chamber. The initial incision was perpendicular to the corneal plane. The second incision with the keratome was placed at a 45-degree angle to the first incision. One cc of one percent Xylocaine MPF was instilled into the anterior chamber to achieve proper intraocular anesthesia. At this time, the Viscoelastic was injected into the anterior chamber for protection of the endothelium and for maintenance of the chamber depth. A 360-degree continuous curvilinear capsulorrhexis was performed using a pre-bent 25-gauge needle. Hydrodissection and hydrodelineation were performed using a Wyman cannula and balanced salt solution. Utilizing the tip of the Wyman cannula, the nucleus was rotated freely within the capsular bag. A standard one-handed phacoemulsification was utilized at this time for sculpting and rotating of the nucleus. The nucleus was fragmented in its entirety and aspirated without any consequence. A standard I&A was carried out for the residual cortical material. No residual material was noted within the capsular bag. The posterior capsule was noted to be clear. Additional Viscoelastic was injected into the capsular bag in preparation for lens implantation. After this has been satisfactorily achieved the intraocular lens injected through the corneal incision into the capsular bag. The intraocular lens was manipulated until it was properly oriented and the Viscoelastic was evacuated from the capsular bag and anterior chamber. The anterior chamber was reformed with balanced salt solution. The corneal incision was irrigated with BSS. The intraocular pressure was found to be within normal limits. This terminated the procedure. The speculum and lid drapes were removed. TobraDex ophthalmic suspension and Pilocarpine 1% drops one drop was applied to the eye. POSTOPERATIVE CONDITION: The patient was brought to the Post anesthesia Recovery area with stable vital signs. DALEXANDREA PEREZ MD
== END 2018-07-09 14:15 | disposition home or self-care (01) ==
LOC: H.OPSURG 09:25
PROVIDERS: ATTEND Ophthalmology
DX: H25.812 Combined forms of age-related cataract, left eye (principal); E78.5 Hyperlipidemia, unspecified; I10 Essential (primary) hypertension; F41.9 Anxiety disorder, unspecified; F32.9 Major depressive disorder, single episode, unspecified; M54.5 Low back pain
CPT/HCPCS: 66984; J0171; J2250; J3010; J7120

== ENCOUNTER 2018-07-23 09:33 | Day surgery (SDC) | payer MEDICARE ==
[2018-07-23] MEDS ORDERED: Lidocaine 1% 20 MG/2 ML PF AMP ONE (10:07)
[2018-07-23] MEDS ORDERED: Maxitrol Opht Susp ONE (10:07)
[2018-07-23] MEDS ORDERED: EPINEPHrine 1 mg/ml (1:1000) Inj ONE (10:07)
[2018-07-23] MEDS ORDERED: Tetracaine 0.5% Ophth 2 ML BOTTLE ONE (10:07)
[2018-07-23] MEDS ORDERED: CA CL/K CL/NA CL 500 ML IR ONE (10:08)
[2018-07-23] MEDS ORDERED: Pilocarpine 1% Opht Soln ONE (10:08)
[2018-07-23] MEDS ORDERED: Chondroitin/Hyaluronate Opth Syringe KIT (0.55 ml-0.5 ml) IO ONE (10:09)
[2018-07-23] MEDS ORDERED: STERILE IRRIGATING SOLUTION 45 ML IR ONE (10:09)
[2018-07-23] MEDS ORDERED: Povidone Iodine 5% Opht SOLUTION ONE (10:10)
[2018-07-23] MEDS ORDERED: Carbachol 0.01% IO ONE ×2 (10:10→11:55)
[2018-07-23] MEDS ORDERED: Lactated Ringer's 1,000 ML IV ONE (10:30)
[2018-07-23 10:42] VITALS: RESP 18
[2018-07-23] MEDS ORDERED: Flurbiprofen 0.03% Opht SOLN OD ONE (10:45)
[2018-07-23] MEDS ORDERED: Phenylephrine 2.5% Opht Soln OD ONE (10:54)
[2018-07-23] MEDS ORDERED: Tropicamide 1% Opht 150 DROP/15 ML OD ONE (11:00)
[2018-07-23] MEDS ORDERED: Midazolam 2 MG/2 ML VIAL ONE (11:37)
[2018-07-23] MEDS ORDERED: Tetracaine 0.5% Ophth 2 ML BOTTLE OU ONE (11:52)
[2018-07-23] MEDS ORDERED: Lidocaine 1.5% PF (20ml) amp IJ ONE (11:53)
[2018-07-23] MEDS ORDERED: Pilocarpine 1% Opht Soln OD ONE (11:56)
[2018-07-23] MEDS ORDERED: Maxitrol Opht Susp OD ONE (11:56)
[2018-07-23] MEDS ORDERED: Povidone Iodine 5% Opht SOLUTION OU ONE (11:56)
[2018-07-23] MEDS ORDERED: BSS 15 ML SOL IR ONE (11:56)
[2018-07-23] MEDS ORDERED: EPINEPHrine 1 mg/ml (1:1000) Inj IV ONE (11:56)
[2018-07-23 13:42] VITALS: PULSE 60
[2018-07-23 13:44] VITALS: BP 140/69; TEMP 97.4; O2SAT 98
--- NOTE | 2018-07-24 07:16 | OP ---
PROCEDURE DATE: 07/23/2018 SURGEON: ALEXANDREA COTA MD ANESTHESIOLOGIST: PUJA LUNDBERG MD ANESTHESIA: LOCAL / IV SEDATION PREOPERATIVE DIAGNOSIS: CATARACT RIGHT EYE. POSTOPERATIVE DIAGNOSIS: CATARACT RIGHT EYE. OPERATION: CLEAR CORNEAL PHACOEMULSIFICATION WITH LENS IMPLANT RIGHT EYE. PREPARATION AND PROCEDURE: After the patient was prepped and draped in the usual manner for sterile ophthalmic surgery, local IV sedation was administered; eye seals were applied to the upper and lower lid margins and an adult wire lid speculum was placed within the lids. Under microsurgical control, a two-step clear corneal incision was made into the anterior chamber. The initial incision was perpendicular to the corneal plane. The second incision with the keratome was placed at a 45-degree angle to the first incision. One cc of one percent Xylocaine MPF was instilled into the anterior chamber to achieve proper intraocular anesthesia. At this time, the Viscoelastic was injected into the anterior chamber for protection of the endothelium and for maintenance of the chamber depth. A 360-degree continuous curvilinear capsulorrhexis was performed using a pre-bent 25-gauge needle. Hydrodissection and hydrodelineation were performed using a Wyman cannula and balanced salt solution. Utilizing the tip of the Wyman cannula, the nucleus was rotated freely within the capsular bag. A standard one-handed phacoemulsification was utilized at this time for sculpting and rotating of the nucleus. The nucleus was fragmented in its entirety and aspirated without any consequence. A standard I&A was carried out for the residual cortical material. No residual material was noted within the capsular bag. The posterior capsule was noted to be clear. Additional Viscoelastic was injected into the capsular bag in preparation for lens implantation. After this has been satisfactorily achieved the intraocular lens injected through the corneal incision into the capsular bag. The intraocular lens was manipulated until it was properly oriented and the Viscoelastic was evacuated from the capsular bag and anterior chamber. The anterior chamber was reformed with balanced salt solution. The corneal incision was irrigated with BSS. The intraocular pressure was found to be within normal limits. This terminated the procedure. The speculum and lid drapes were removed. TobraDex ophthalmic suspension and Pilocarpine 1% drops one drop was applied to the eye. POSTOPERATIVE CONDITION: The patient was brought to the Post anesthesia Recovery area with stable vital signs. DALEXANDREA PEREZ MD
== END 2018-07-23 13:45 | disposition home or self-care (01) ==
LOC: H.OPSURG 09:33
PROVIDERS: ATTEND Ophthalmology
DX: H25.811 Combined forms of age-related cataract, right eye (principal); M19.90 Unspecified osteoarthritis, unspecified site; E78.5 Hyperlipidemia, unspecified; I10 Essential (primary) hypertension
CPT/HCPCS: 66984; J0171; J2250; J3010; J7120; V2632